=== PATIENT | female | born 1990 | race Caucasian/White ===

== ENCOUNTER 2016-07-17 21:23 | Emergency (ER) | payer BC | END 2016-07-18 01:50 | disposition home or self-care (01) | LOC: ER 21:23 | DX: G43.909 Migraine, unspecified, not intractable, without status migrainosus (principal); K21.9 Gastro-esophageal reflux disease without esophagitis; F32.9 Major depressive disorder, single episode, unspecified; F41.9 Anxiety disorder, unspecified; F17.200 Nicotine dependence, unspecified, uncomplicated; Z85.850 Personal history of malignant neoplasm of thyroid; Z88.8 Allergy status to other drugs, medicaments and biological substances; Z88.6 Allergy status to analgesic agent | CPT/HCPCS: 70220; 70450; 93005; 96374; 96375; 96376; 99285; J1110; J1200; J2765 ==